=== PATIENT | male | born 1960 | race Caucasian/White ===

== ENCOUNTER 2024-07-19 09:59 | Emergency (ER) | payer BC, SELFPAY ==
[2024-07-19 10:07] VITALS: BP 153/80; PULSE 100; RESP 22; TEMP 37.3; O2SAT 97
--- NOTE | 2024-07-19 10:10 | ED.URI ---
HPI - URI/Sore Throat General Chief Complaint: Upper Respiratory Infection Stated Complaint: head cold Source: patient and RN notes reviewed Mode of arrival: ambulatory Limitations: no limitations History of Present Illness HPI Narrative: 63-year-old male presented for complaint of cough and wheezing, chest congestion, runny nose, body aches, and subjective fever. Onset yesterday. Endorses symptoms started after he had respiratory testing for his job. Pt traveled from [place]. He denies nausea, vomiting, diarrhea or lethargy. MD elicited complaint: cough Related Data Home Medications ?Medication ?Instructions ?Recorded ?Confirmed ?Last Taken ?Type alprazolam 07/19/24 Unknown History amlodipine 07/19/24 Unknown History rosuvastatin 07/19/24 Unknown History Allergies Allergy/AdvReac Type Severity Reaction Status Date / Time No Known Allergies Allergy Verified 07/19/24 10:22 Review of Systems Review of Systems: CONSTITUTIONAL: Endorses malaise, myalgia, chills, sweats, fever EYES: Denies visual changes, redness, or discharge ENT: Reports rhinorrhea, congestion, sinus pain, otalgia, sore throat CARDIOVASCULAR: Denies chest pain, palpitations, edema RESPIRATORY: Reports cough, post nasal drainage dyspnea and wheeze GASTROINTESTINAL: Denies abdominal pain, nausea, vomiting, diarrhea SKIN: Denies rash or itching NEUROLOGIC: Denies headache All systems reviewed & are unremarkable except as noted in HPI and below PMFSH Comments At time of signature, I have reviewed and agree with nursing past medical, surgical, social and family history unless otherwise noted. Please see nursing chart for further information. There is no relevant family history pertinent to the presenting complaint Exam Narrative: GENERAL: mildly Ill-appearing, nontoxic no acute distress. EYES: PERRLA, conjunctivae clear ENT: Mucous membranes moist. TM pearly nails with dull light reflex bilaterally; no tragal tenderness. Oropharynx not erythematous without lesions or exudate, no drooling, no hoarseness, no trismus, uvula midline. CHEST: Lungs coarse with wheezing throughout No respiratory distress, speaks in full sentences. Frequent harsh cough. HEART: Regular rate and rhythm. SKIN: Warm, dry NEURO: Alert and oriented x3. PSYCH: Normal mood and affect Course Course Emergency Course: Patient is aware of diagnosis, understands and agrees to treatment plan. Anticipatory guidance given. Patient agrees to follow-up as directed and is aware of reasons to seek care at the emergency department. Portions of this record may have been created with voice recognition software Level of Care: Express Care Visit Vital Signs Vital signs: Vital Signs Temperature 99.1 F 07/19/24 10:07 Pulse Rate 100 07/19/24 10:07 Respiratory Rate 22 H 07/19/24 10:07 Blood Pressure 153/80 H 07/19/24 10:07 Pulse Oximetry 97 07/19/24 10:07 Oxygen Delivery Room Air 07/19/24 10:07 Temperature 99.1 F 07/19/24 10:07 Pulse Rate 100 07/19/24 10:07 Respiratory Rate 22 H 07/19/24 10:07 Blood Pressure 153/80 H 07/19/24 10:07 Pulse Oximetry 97 07/19/24 10:07 Oxygen Delivery Room Air 07/19/24 10:07 reviewed MDM - URI/Sore Throat MDM Narrative Medical decision making narrative: Discussed physical exam findings likely bronchitis 2/2 viral infection negative flu and COVID Reassessed after DuoNeb treatment; reports some improvement in breathing. Lungs with exp wheezing only. Advised supportive measures and signs/symptoms to go to the ER at length. Pt is appropriate for outpt treatment and f/u. Differential Diagnosis Differential diagnosis: Likely upper respiratory infection, sinusitis and viral infection Lab Data Labs: Lab Results 07/19/24 Range/Units 10:39 POC Influenza A Ag Negative (Negative) POC Influenza B Ag Negative (Negative) POC SARS CoV-2 Ag Negative (Negative) Discharge Plan Discharge Clinical Impression: Bronchitis Patient Disposition: Home, Self-Care Condition: Stable Instructions: Antibiotic Form, Acute Bronchitis (ED) Additional Instructions: flu and COVID negative today. It may be too early to detect the virus, therefore we recommend retesting at home in 1-2 days Continue to follow general precautions: frequent handwashing, wear a mask, isolate/social distance, and avoid crowds if you have a fever. You must be fever free for 24 hours without the use of fever reducing medication (Tylenol/ibuprofen) before returning to work/school/crowds. Take medicine as prescribed -Medrol pack - steroid -albuterol inhaler - as needed for shortness of breath/wheezing -benzonatate - as needed for cough -zyrtec - antihistamine Recommendations: Flonase spray and Zyrtec (or Claritin/Karolyn) for runny nose over the counter Cough syrup may cause drowsiness; avoid driving or take it at night time. Tylenol 1000mg every 8 hours as needed for pain Symptomatic treatment includes: rest, fluids, and increase humidity of the air at home. Follow up with your primary care provider in 1 week. Go to the ER for worsening symptoms or concerns. Patient Language: Swazi Prescriptions: New cetirizine [Zyrtec] 10 mg tablet 10 mg PO DAILY PRN (Reason: allergy symptoms) Qty: 30 0RF benzonatate 200 mg capsule 200 mg PO TID PRN (Reason: cough) Qty: 20 0RF methylprednisolone [Medrol (Daniele)] 4 mg tablets,dose pack See Rx Instructions .ROUTE .COMPLEX Qty: 21 0RF Rx Instructions: orally per package directions albuterol sulfate 90 mcg/actuation HFA aerosol inhaler 2 inh inhalation QID PRN (Reason: shortness of breath or wheezing) Qty: 8.5 0RF No Action amlodipine rosuvastatin alprazolam Follow-up/Referrals: PHYSICIAN NOT ON STAFF,NONSTAFF [Primary Care Provider] -
[2024-07-19 10:41] LABS: EDCOVIDSCREEN Negative (Negative); EDINFLUASCREEN Negative (Negative); EDINFLUBSCREEN Negative (Negative)
--- OUTSIDE RECORDS SUMMARY | 2024-07-19 10:48 | XMS_ITS | Referral Summary ---
Author [place] [facility] [place] [facility] Address [address] [place] [address] Care Team Providers Care Data Processing Operator Name Role Phone Unknown, Notinfile Primary Care Provider Unavail able Allergies Active Allergy Reactions Criticality Noted Date Comments Ibuprofen Rash Medium 02/22/2017 High doses High doses Paroxetine Other (See comments) Medium 04/23/2014 Nervousness Other reaction(s): Psychiatric Nervousness Nervousness Medications amLODIPine (NORVASC) 10 mg tablet Take 10 mg by mouth daily 1 Active ALPRAZolam (XANAX) 1 mg tablet Take 1.5 mg by mouth daily as needed 9 Active rosuvastatin (CRESTOR) 10 mg tablet Take 10 mg by mouth daily 1 Active albuterol HFA (PROVENTIL HFA,VENTOLIN HFA,PROAIR HFA) 90 mcg/actuation inhaler Inhale 2 puffs every 6 (six) hours as needed 9 Active tadalafiL (ADCIRCA) 10 mg tablet Take 10 mg by mouth daily as needed for erectile dysfunction Active Active Problems No known active problems Social History Tobacco Use Types Packs/Day Years Used Date Smoking Tobacco: Former Cigarettes Q uit: 10/1998 Smokeless Tobacco: Former Chew Tobacco Cessation:Counseling Given: Not Answered Personal Safety Answer Date Recorded Getting School Help Needed Not on file 07/08 Sex and Gender Information Value Date Recorded Sex Assigned at Not on file Legal Sex Male 2:12 PM CDT Gender Identity Not on file Sexual Orientation Not on file Last Filed Vital Signs Vital Sign Reading Time Taken Comments Blood Pressure 111/64 05/23/2022 5:00 PM RECORD LIBRARIAN Pulse 69 05/23/2022 5:00 PM RECORD LIBRARIAN Temperature 37 C (98.6 F) 05/23/2022 5:00 PM RECORD LIBRARIAN Respiratory Rate 16 05/23/2022 5:00 PM RECORD LIBRARIAN Oxygen Saturation 98% 05/23/2022 5:00 PM RECORD LIBRARIAN Inhaled Oxygen Concentration - - Weight 74.8 kg (165 lb) 05/23/2022 12:14 PM RECORD LIBRARIAN Height 167.6 cm (5' 6 ) 05/23/2022 12:14 PM RECORD LIBRARIAN Body Mass Index 26.63 05/23/2022 12:14 PM RECORD LIBRARIAN Plan of Treatment Not on file [place] Care Teams Data Processing Operator Relationship Specialty Start Date End Date Unknown, Notinfile PCP - General 05/23/22
--- OUTSIDE RECORDS SUMMARY | 2024-07-19 10:48 | XMS_ITS | Encounter Summary ---
Author Organization [facility] Address [address] [place] [address] Phone Care Team Providers Care Supervisor Marble Name Role Phone Sarmad Taylor MD Primary Care Provider [phone] Reason for Visit * Reason Comments Medication Refill Encounter Details Date Type Department Care Team (Late Contact Info) Description 02/20/2023 Refill [facility] [address] [facility] [address] [place], [address] Sarmad Taylor MD [address] [facility] [address] [place] [address] Social History Tobacco Use Types Packs/Day Years Used Date Smoking Tobacco: Former Cigarettes 2 20 1 - 04/23/2005 Smokeless Tobacco: Never Alcohol Use Standard Drinks/Week Comments Yes 0 (1 standard drink = 0.6 oz pur e alcohol) rare PHQ-2 Answer Date Recorded PHQ-2 Score 0 01/24/2023 Sex and Gender Information Value Date Recorded Sex Assigned at Not on file Legal Sex Male 5:55 PM TRUCK SALES REPRESENTATIVE Gender Identity Not on file Sexual Orientation Not on file documented as of this encounter Plan of Treatment Upcoming Encounters Date Type Department Care Team (Late Contact Info) Description 01/27/2025 8:45 AM CDT Office Visit [facility] [address] [facility] [address] [place] [address] Sarmad Taylor MD [address] [place] [address] documented as of this encounter Visit Diagnoses Not on filedocumented in this encounter Additional Health Concerns Assessment Noted Time PHQ-9 Depression Total Score: 0 04/18/20 19 7:55 AM TRUCK SALES REPRESENTATIVE A fall risk assessment has been complete d for the patient 01/24/2023 9:25 AM CDT PHQ-2 Depression Total Score: 0 01/25/20 23 9:25 AM CDT documented as of this encounter Care Teams Supervisor Marble Relationship Specialty Start Date End Date Sarmad Taylor MD [address] [place] [address] PCP - General Internal Medicine 04/23/14 documented as of this encounter
--- OUTSIDE RECORDS SUMMARY | 2024-07-19 10:48 | XMS_ITS | Encounter Summary ---
Author Organization [facility] Address [address] [place] [address] Phone Care Team Providers Care Assistant Commissioner Name Role Phone Sarmad Taylor MD Primary Care Provider [phone] Reason for Visit * Reason Onset Date Comments Medication Refill 08/12/2022 Encounter Details Date Type Department Care Team (Late st Contact Info) Description 08/12/2022 Refill [facility] [address] [facility] [place] [address] Sarmad Taylor MD [address] [facility] [address] [place] [address] Erectile dysfunction, unspecified erectile dysfunction type; Anxiety Social History Tobacco Use Types Packs/Day Years Used Date Smoking Tobacco: Former Cigarettes 2 20 1 - 04/23/2005 Smokeless Tobacco: Never Alcohol Use Standard Drinks/Week Comments Yes 0 (1 standard drink = 0.6 oz pur e alcohol) rare PHQ-2 Answer Date Recorded PHQ-2 Score 0 01/24/2022 Sex and Gender Information Value Date Recorded Sex Assigned at Not on file Legal Sex Male 5:55 PM HEAD OF ETHICS AND COMPLIANCE Gender Identity Not on file Sexual Orientation Not on file documented as of this encounter Plan of Treatment Upcoming Encounters Date Type Department Care Team (Late st Contact Info) Description 01/27/2025 8:45 AM CDT Office Visit [facility] [address] [facility] [address] [place] [address] Sarmda Taylor MD [address] [facility] [address] [place] [address] documented as of this encounter Visit Diagnoses Diagnosis Erectile dysfunction, unspecified erectile dysfunction type Anxiety Anxiety state, unspecified documented in this encounter Additional Health Concerns Assessment Noted Time PHQ-9 Depression Total Score: 0 04/18/20 19 7:55 AM HEAD OF ETHICS AND COMPLIANCE A fall risk assessment has been complete d for the patient 07/03/2022 4:10 PM CDT PHQ-2 Depression Total Score: 0 01/25/20 22 10:04 AM CDT documented as of this encounter Care Teams Assistant Commissioner Relationship Specialty Start Date End Date Sarmad Taylor MD [address] [facility] [place] [address] PCP - General Internal Medicine 04/23/14 documented as of this encounter
--- OUTSIDE RECORDS SUMMARY | 2024-07-19 10:48 | XMS_ITS | Clinical Summary ---
Author Organization [facility] Address [address] [facility] [place] [address] Phone Care Team Providers Care Bar Host Name Role Phone Sarmad Taylor MD Primary Care Provider [phone] Allergies Active Allergy Reactions Criticality Noted Date Comments Ibuprofen Rash Low 02/22/2017 High doses Paroxetine Medium 04/23/2014 Other reaction(s): Psychiatric Nervousness Paroxetine Hcl Other (See Comments) 04/23/2014 Nervousness Medications omeprazole (PRILOSEC) [address] capsule Take one capsule (10 mg total) by mouth one (1) time a day Active tadalafiL (CIALIS) 20 MG tabletIndications: Erectile dysfunction, unspecified erectile dysfunction type Take one tablet (20 mg total) by mouth as needed for erectile dysfunction 30 tablet 3 01/25/20 23 Active lidocaine (XYLOCAINE) 2 % mucosal solutionIndication s:Mouth ulcer Swish and spit 5 mL 4 (four) to 5 (five) times daily as needed 100 mL 01/08/20 24 025 Active rosuvastatin (CRESTOR) 20 MG tabletIndications: Mixed hyperlipidemia TAKE 1 TABLET BY MOUTH DAILY 30 tablet 11 01/19/20 24 Active losartan (COZAAR) 25 MG tabletIndications: Essential hypertension with goal blood pressure less than 130/80 Take one tablet (25 mg total) by mouth one (1) time a day 30 tablet 11 01/28/20 24 025 Active amLODIPine (NORVASC) 10 MG tabletIndications: Essential hypertension with goal blood pressure less than 130/80 Take one tablet (10 mg total) by mouth one (1) time a day 30 tablet 11 01/28/20 24 Active ALPRAZolam (XANAX) 1 MG tabletIndications: Anxiety Take one and one-half tablet (1.5 mg total) by mouth daily as needed for anxiety 45 tablet 5 02/02/20 24 Active Active Problems Patient Care Coordination No te Formatting of this note migh t be different from the original. Screening colon 02/22/17 @[address] [place] [address] Problem Noted Date Diagnosed Date Cystitis 03/28/2023 Asthma 03/28/2023 GERD (gastroesophageal reflux disease) 3 Hypertension 03/28/2023 Screen for colon cancer 02/22/2017 Internal hemorrhoids without complication 2016 Encounters Date Type Department Care Team Description 07/16/2024 Historic Scan Encounter [facility] [address] [facility] [place] [address] Sarmad Taylor MD from Last 3 Months Immunizations Immunization Administration Dates Next Due Influenza Inj. QIV (PF) 04/18/2019 Influenza Seasonal Inj. (PF) 01/25/2024 influenza QIV PF 3+ yrs 01/16/2017,02/16/2016 Family History Medical History Relation Name Comments Colon cancer Neg Hx Diabetes Neg Hx Hyperlipidemia Neg Hx Hypertension Neg Hx Social History Tobacco Use Types Packs/Day Years Used Date Smoking Tobacco: Former Cigarettes 2 20 1 - 04/23/2005 Smokeless Tobacco: Never Tobacco Cessation:Counseling Given: Not Answered Alcohol Use Standard Drinks/Week Comments Yes 0 (1 standard drink = 0.6 oz pur e alcohol) rare PHQ-2 Answer Date Recorded PHQ-2 Score 0 01/25/2024 BOC Food Insecurity Answer Date Recorde d Food Insecurity Not At Risk 07/25/2023 BOC Transportation Needs Answer Date Re corded Transportation Needs Not At Risk 07/25/2023 BOC Housing Stability Source Answer Dutch e Recorded Housing Insecurity Not At Risk 07/25/2023 BOC Utility Needs Source Answer Date Re corded Utility Needs Not At Risk 06/24/2023 BOC Financial Resource Needs Answer Dutch e Recorded Financial Resource Strain Not At Risk 2023 Intimate Partner Safety Answer Date Rec orded Intimate Partner Safety Not At Risk 06/24/19 24 Intimate Partner Safety Not At Risk 06/24/19 24 Intimate Partner Safety Not At Risk 06/24/19 24 Intimate Partner Safety Not At Risk 06/24/19 24 Intimate Partner Safety Not At Risk 06/24/19 24 Sex and Gender Information Value Date Recorded Sex Assigned at Not on file Legal Sex Male 5:55 PM ROCKET SCIENTIST Gender Identity Not on file Sexual Orientation Not on file Last Filed Vital Signs Vital Sign Reading Time Taken Comments Blood Pressure 128/80 01/25/2024 9:18 AM CDT Pulse 68 01/25/2024 8:59 AM CDT Temperature 36.4 C (97.6 F) 01/25/2024 8:59 AM CDT Respiratory Rate 22 03/31/2023 7:45 AM ROCKET SCIENTIST Oxygen Saturation 98% 01/25/2024 8:59 AM CDT Inhaled Oxygen Concentration - - Weight 73.7 kg (162 lb 6.4 oz) 01/25/2024 8:59 A M CDT Height 167.6 cm (5' 6 ) 01/25/2024 8:59 AM CDT Body Mass Index 26.21 01/25/2024 8:59 AM CDT Plan of Treatment Upcoming Encounters Date Type Department Care Team (Late st Contact Info) Description 01/27/2025 8:45 AM CDT Office Visit [facility] [address] [facility] [address] [place], [address] Sarmad Taylor MD [address] [facility] [address] [place] [address] Health Maintenance Due Date Last Done Comments Colorectal Cancer Screening Annual FOBT/FIT Test 1960 Colorectal Cancer Screening Cologuard 1960 Colorectal Cancer Screening Flex Sigmoidoscopy 1960 Pneumococcal Vaccine High Risk 1961 DTap/Tdap/Td Vaccines (1 - Tdap) 1980 Colonoscopy Every 6 Months 08/22/2017 02/22/2017 RSV Immunization Patients or 60+ Years (1 - Risk 60-74 years 1-dose series) 2021 Hepatitis C Antibody Screen 01/23/2025 Postponed from 10/24/1979 (Not Indicated) Annual Depression Screening 01/24/2025 100 06/2023, 01/24/2023, 01/24/2022, Additional history exists Annual Physical 01/24/2025 01/25/2024 Colorectal CA Screen 10 Year Colonoscopy 02/22/2027 02/22/2017 Colorectal Cancer Screening 02/22/2027 02/22/2017 02/22/2017 02/22/2017 02/22/2017 02/22/2017 02/22/2017 Influenza Vaccine Completed 01/25/2024, , 01/16/2017, Additional history exists Zoster Vaccine (Shingles) Discontinued Insurance BLUE CROSS OUT OF STATE [facility] OUT OF [facility] Advance Directives For more information, please contact: [phone] (7AM - 5PM [facility], 7 days a week) * Full Code (Latest Code Status on File) Date Activated Date Inactivated Comments 03/29/2023 2:55 AM 03/31/2023 7:42 PM Care Teams Bar Host Relationship Specialty Start Date End Date Sarmad Taylor MD [address] [facility] [place] [address] PCP - General Internal Medicine 04/23/14
--- OUTSIDE RECORDS SUMMARY | 2024-07-19 10:48 | XMS_ITS | Clinical Summary ---
Author Organization [facility] [place] [facility] Address [address] [facility] [place] [address] Care Team Providers Care Soil Sort Worker Name Role Phone Unknown, Notinfile Primary Care [...] Active Active Problems No known active problems Medical History Medical History Date Comments High cholesterol Anxiety HTN (hypertension) Social History Tobacco Use Types Packs/Day Years [...] on file Sexual Orientation Not on file Obstetrics History Last Filed Vital Signs Vital Sign Reading Time Taken Comments Blood Pressure 111/64 05/23/2022 5:00 PM QUALITY CONTROL MICROBIOLOGY SUPERVISOR Pulse 69 05/23/2022 5:00 PM QUALITY CONTROL MICROBIOLOGY SUPERVISOR Temperature 37 C (98.6 F) 05/23/2022 5:00 PM QUALITY CONTROL MICROBIOLOGY SUPERVISOR Respiratory Rate 16 05/23/2022 5:00 PM QUALITY CONTROL MICROBIOLOGY SUPERVISOR Oxygen Saturation 98% 05/23/2022 5:00 PM QUALITY CONTROL MICROBIOLOGY SUPERVISOR Inhaled Oxygen Concentration - - Weight 74.8 kg (165 lb) 05/23/2022 12:14 PM QUALITY CONTROL MICROBIOLOGY SUPERVISOR Height 167.6 cm (5' 6 ) 05/23/2022 12:14 PM QUALITY CONTROL MICROBIOLOGY SUPERVISOR Body Mass Index 26.63 05/23/2022 12:14 PM QUALITY CONTROL MICROBIOLOGY SUPERVISOR Plan of Treatment Health Maintenance Due Date Last Done Comments Colon Cancer Screening-Colonoscopy 1961 Depression Screening 1961 Hepatitis C Screening 1961 Prostate Cancer Screening-PSA 1961 DTaP/Tdap/Td Vaccine (1 - Tdap) 1972 Hepatitis B Screening 10/24/1979 Regular Well Visit/Exam 18-64 10/24/1979 Zoster Vaccine (1 of 2) 10/24/2011 Influenza Vaccine (#1) 2023 9, 01/16/2017, 02/16/2016 Pneumococcal vaccine <65 Aged Out No longer eligible based on patient's age to complete this topic [place] Care Teams Soil Sort Worker Relationship Specialty Start Date End Date Unknown, Notinfile PCP - General 05/23/22
--- OUTSIDE RECORDS SUMMARY | 2024-07-19 10:48 | XMS_ITS ---
Author Organization [facility] Address [address] [place] [address] Care Team Providers Care Deportation Examiner Name Role Phone Nicolás Herbert Unavailable [phone] REASON FOR VISIT SYMPTOMS POST SURGERY Medications Medication SIG (Take, Route, Fr equency, Duration) Notes Start Date End Date Status Cipro 500 mg 1 tab(s) orally ever y 12 hours for 10 day(s) 03/27/2023 04/06/2023 Active Encounters Encounter Location Date Provider Diagnosis [facility] [address] [place] [address] 03/27/2023 Nicolás Herbert Plan Of Treatment Medication Medication Name Sig Start Date Stop Date Notes Cipro 500 mg 1 tab(s) orally ever y 12 hours for 10 day(s) 03/27/2023 04/06/2023 Progress Notes * Cheng PARRADOB:1960 (62 yo M)Acc No.[id number]:03/27/2023 Patient: Cheng Lewis :1960 A ge:62 Y S ex:Male Address:[place], [address] * Refills Start Cipro tablet, 500 mg, orally, 20, 1 tab(s), every 12 hours, 10 day(s), Refills=0 * true * Date: Generated for Printi ng/Faxing/eTransmitting on: 0 07/19/2024 10:48 AM CDT
--- OUTSIDE RECORDS SUMMARY | 2024-07-19 10:48 | XMS_ITS | Patient Health Record ---
Author Organization [facility] Address [address] [place] [address] Care Team Providers Care Search Engineer Name Role Phone Nicolás Herbert Unavailable [phone] Allergies Allergen (clinical drug ingredient) Drug/Non Drug Allergy documented on EMR Reaction Allergy Type Onset Date Status ibuprofen rash Drug Allergy Active Reason For Referral No Information Medications Medication SIG (Take, Route, Fr equency, Duration) Notes Start Date End Date Status tamsulosin 0.4 mg 1 cap(s) orally once a day for 30 day(s) Active amLODIPine 10 mg 1 tab(s) orally once a day for 30 day(s) Active aspirin 81 mg 1 tab(s) chewed once a day for 30 day(s) Active promethazine 12.5 mg 1 supp(s) rectally every 6 hours prn for 5 days Active Flomax 0.4 mg 1 cap(s) orally once a day 3 Active rosuvastatin 20 mg 1 tab(s) orally once a day for 30 day(s) Active tadalafil 20 mg 1 tab(s) orally once a day Active ALPRAZolam 1 mg 1 tab(s) orally every 8 hours Active losartan 25 mg 1 tab(s) orally once a day for 30 day(s) Active Problems Problem Type SNOMED Code ICD Code Onset Dates Problem Status W/U Status Risk Notes Problem Nausea and vomiting (52340421) Nausea with vomiting, unspecified (R11.2) Active confirmed Problem Hydronephrosis (65806190) Other hydronephrosis (N13.39) Active confirmed Problem Retention of urine (540249074) Retention of urine, unspecified (R33.9) Active confirmed Problem Calculus of ureter (59190570) Calculus of ureter (N20.1) Active confirmed Plan Of Treatment Pending Test Test Name Order Date UA-AUTO/CREAT/MICRO ALB 03/06/2023 Insurance Providers Payer Name Payer Address Payer Phone Subscriber Number Group Number Insured Name Patient Relationship to Insured Coverage Start Date Coverage End Date [facility] [address] [place] [address] [id number] Cheng Timmons Self - patient is the insured Medical (General) History Medical History History ICD Code Hypertension Kidney Stones Surgical History Surgery Date(Month/Year) Kidney stones Hernia Hospitalization History Reason Date(Month/Year) surgery
--- OUTSIDE RECORDS SUMMARY | 2024-07-19 10:48 | XMS_ITS | Clinical Summary ---
Author Organization [facility] [employer] Address [address] [place] [address] Care Team Providers Care Assignment Officer Name Role Phone Unavailable Primary Care Provider Unavailabl e Source Comments [facility],non-owned Affiliates and Associated Physician Practices is amultiple site organization consisting of ambulatory clinics and hospital sitesin [place], [place], [place] and [place]. This disclosure is being madepursuant to the Care Everywhere program and may not contain all information available regarding this patient. Last updated 18.[facility] [employer] Allergies Active Allergy Reactions Criticality Noted Date Comments Ibuprofen Rash Medium 02/22/2017 High doses Paroxetine Psychiatric Medium 04/23/2014 Nervousness Medications * Be aware that medications may not be up to date on this document. Alwaysverify current medications with the patient. Medication Sig Dispensed Refills Start Date End Date Status ALPRAZolam (XANAX) 1 MG tablet TAKE ONE AND ONE-HALF (1 & 1/2) TABLET BY MOUTH DAILY 09/09/2018 Active acyclovir (ZOVIRAX) 400 MG tablet TK 1 T PO Q 6 H PRN 0 01/05/2019 Active albuterol HFA (PROVENTIL;VENTOLIN;P ROAIR) 108 (90 Base) MCG/ACT inhalerIndications:Ac swinomish bronchitis, unspecified organism Inhale 2 puffs by mouth every 6 hours as needed for Wheezing or Cough 1 Inhaler 02/25/2019 Active Active Problems Problem Noted Date Diagnosed Date Internal hemorrhoids without complication 2016 Screen for colon cancer 02/22/2017 Social History Tobacco Use Types Packs/Day Years Used Date Smoking Tobacco: Former Smokeless Tobacco: Never Sex and Gender Information Value Date Recorded Sex Assigned at Not on file Gender Identity Not on file Sexual Orientation Not on file Last Filed Vital Signs Vital Sign Reading Time Taken Comments Blood Pressure 132/80 02/25/2019 9:58 AM CASTING INSPECTOR Pulse 77 02/25/2019 9:58 AM CASTING INSPECTOR Temperature 36.6 C (97.8 F) 02/25/2019 9:58 AM CASTING INSPECTOR Respiratory Rate 16 02/25/2019 9:58 AM CASTING INSPECTOR Oxygen Saturation 98% 02/25/2019 9:58 AM CASTING INSPECTOR Inhaled Oxygen Concentration - - Weight 73.5 kg (162 lb) 02/25/2019 9:58 AM CASTING INSPECTOR Height 167.6 cm (5' 6 ) 02/25/2019 9:58 AM CASTING INSPECTOR Body Mass Index 26.15 02/25/2019 9:58 AM CASTING INSPECTOR Plan of Treatment Health Maintenance Due Date Last Done Comments COLOGUARD (AGES 45-75) - COL ON CA SCREENING 1961 COLON MONITORING 1961 COLONOSCOPY - COLON CA SCREENING 1961 CT COLONOGRAPHY - COLON CA SCREENING 1960 Colorectal Cancer Screening 1961 FIT - COLON CA SCREENING 1961 FLEX SIG - COLON CA SCREENING 1961 LIPID TESTING 1961 HIV SCREENING 1976 HEPATITIS C SCREENING 10/19/1979 DTAP/TDAP/TD VACCINES (1 - Tdap) 1980 PNEUMOCOCCAL VACCINE 50+ (1 of 1 - PCV) 10/24/2011 ZOSTER VACCINE (1 of 2) 10/24/2011 SCREENING FOR DIABETES 02/25/2019 COVID-19 VACCINE ( - 2023-2 5 season) 2023 INFLUENZA VACCINE (#1) 2023 DEPRESSION SCREENING 04/24/2024 Respiratory Syncytial Virus (RSV) Vaccine Pt: or over 60 yrs (1 - 1-dose 75+ series) 2036 HEPATITIS B VACCINE Aged Out No longe r eligible based on patient's age to complete this topic HIB VACCINE Aged Out No longer eligi ble based on patient's age to complete this topic HPV VACCINE Aged Out No longer eligi ble based on patient's age to complete this topic MENINGOCOCCAL (Group B) VACC INE SHARED DECISION-MAKING Aged Out No longer eligibl e based on patient's age to complete this topic MENINGOCOCCAL GROUPS A/C/Y/W VACCINE Aged Out No longer eligible b ased on patient's age to complete this topic PNEUMOCOCCAL VACCINE Aged Out No long er eligible based on patient's age to complete this topic
--- OUTSIDE RECORDS SUMMARY | 2024-07-19 10:48 | XMS_ITS | Data Portability ---
Author Organization [place] - [facility], [facility] Address [address] [place] [address] Assessment Encounter Date Assessment Date Assessment LastModified by Organization Details LastModified Time 08/12/2022 08/12/2022 Patient is overall doing very well at this time. I am okay with him returning to work at this point. He may continue to increase his activity to tolerance. We will plan to see him back in 4 weeks time for repeat evaluation. All questions were answered today. [email or web address] Not available 08/15/2022 02:37:39 09/09/2022 09/09/2022 Patient is overall doing very well at this time. He may continue to increase his activity to tolerance. We will plan to see him back on an as needed basis at this point. All questions were answered today. [email or web address] Not available 09/10/2022 00:52:06 Plan of Treatment Reminders Order Date Submit Date Provider Last Modified By Organization Details Last Modified Time Details Appointments None record ed. Lab None record ed. Referral None record ed. Procedures None record ed. Surgeries None record ed. Imaging None record ed. Medication Orders None record ed. Patient TargetsNo targets recorded. Patient InstructionsNo instructions recorded. Reason for Referral None Reported. Results Created Date Observation Date Name Description Value Unit Range Abnormal Flag Note LastModifiedBy Organization Detail LastModifiedTime 11/24/1907/11/2022 imagi ng/di agnos tic resul t No observ ation record ed. [email or web address] Not Available 11/24/2023 06:00:14 Result Notes None recorded. Problems Name Problem SNOMED Code Status Onset Date Resolution Date Notes Provider Name and Address Organization Details Recorded Time Tear of medial meniscus of knee 560966212 Active 2022 Patient Education Date: 07/06/2022 Not Available [facility] 3 14:52:15 Dislocate d knee with medial meniscus tear 672131849 Active 2022 Patient Education Date: 07/06/2022 Not Available [facility] 3 14:52:15 Problem Notes None recorded. Procedures Surgical History None recorded. Imaging Results Imaging Date Name Status LastModified by Organiz ation Details LastModified Time 07/11/2022 imaging/carmelo gnostic result completed [email or web address] Information not available 11/24/2023 06:00:14 Procedure Notes None recorded. Medical Equipment None Reported. Allergies No known drug allergies Medications Name Sig Start Date Stop Date Status Note LastModified by Organization Details LastModified Time aspirin 81 mg tablet,del ayed release TAKE ONE TABLET BY MOUTH DAILY active Not Available Not Available No t Available naproxen 500 mg tablet 009 2022 completed Not Available Not Available Not Available Vitals Date Recorded Body height Body mass index (BMI) Body weight Provider Name and Address Organization Details Last Updated DateTime 08/12/2022 167.64 cm 28.6 kg/m2 98664.85 g ZionTyrellSarah Soto [facility], 08/12/2022 14:20:28 Date Recorded Body height Body mass index (BMI) Body weight Provider Name and Address Organization Details Last Updated DateTime 09/09/2022 167.64 cm 28.6 kg/m2 07511.85 g Marquita Moss [facility], 09/09/2022 13:23:12 Social History Question Answer Notes LastModified by Organizat ion Details LastModified Time Tobacco Smoking Status Never Smoker ZionTyrellSarah Soto [facility], 08/12/2022 14:21:07 What Is Your Level Of Alcohol Consumption? None Information not available 08/12/2022 Do You Use Any Illicit Or Recreational Drugs? No [email or web address] Information not available 08/12/2022 Do You Or Have You Ever Used Any Other Forms Of Tobacco Or Nicotine? No [email or web address] Information not available 08/12/2022 Sex: Unknown Functional Status None recorded. Mental Status None recorded. Family History Relationship Description Onset Age of this Age Resolved Age Notes LastModified by Organization Details LastModified Time Unspecified Relation Family history of malignant neoplasm Not available 08/12 14:20:54 Unspecified Relation Hypertensive disorder [email or web address] Not available 08/12 14:20:58 Medical History Condition Response Other N Gout N Anxiety/Depression N Osteoarthritis N Colitis N MRSA N Lung disease/COPD/Emphysema N Thyroid Problems N Sickle Cell Disesae N Goiter N Osteoporosis/Osteopenia N Anemia N Acid Reflux (GERD)/Stomach ulcer N Diabetes N Bleeding Disorder N Blood Clot N Tuberculosis N AIDS/HIV N Cancer N Stroke N Asthma N Lupus N Epilepsy/Seizures N Polio N Alcohol Overuse/Alcohol Abuse N Sleep Apnea N Neurologic Disorder N Hepatitis N Pelvic Radiation N Liver Disease N Heart Disease/Heart attack N Rheumatoid Arthritis N Hypertension N Kidney Disease N Past Encounters Encounter ID Performer Location Encounter Start Date Encounter Closed Date Diagnosis/Indication Diagnosis SNOMED-CT Code Diagnosis ICD10 Code Diagnosis Note [id number] Saul Dwyer MD [facility] [address] [place] [address] 08/12/2022 14:01:14 08/12/2022 14:22:53 Tear of medial meniscus of knee 654940001 S83.231D [id number] Saul Dwyer MD [facility] [address] [place] [address] 09/09/2022 13:13:20 09/09/2022 13:46:59 Tear of medial meniscus of knee 965886672 S83.231D Health Concerns Section Related Observation LastModified by Organization Detai ls LastModified Time None Recorded Concern Status LastModified by Organization Details LastModified Time None Recorded Advance Directives Directive None Recorded Payers Encounter Date Sequence Insurance Name Policy Number Policy Carreno Covered Member ID Carreno Member ID Guarantor Name 08/12/2022 1 [place] [id number] Evert Timmons [id number] Evert Timmons 09/09/2022 1 [place] [id number] Evert Timmons [id number] Evert Marcus Shanelle Notes Date Note Type Note Provider Name and Address Organization Details Recorded Time 08/12/2022 text/html Patient returns to clinic status post arthroscopy. States he has been doing well. Denies any wound problems. Feels much better compared to preoperative state. Saul Dwyer MD [address] [place] [address], [phone], [facility], 08/15/2022 02:37:42 09/09/2022 text/html Patient returns to clinic status post arthroscopy. States he has been doing well. Has been doing well with increased activity. Continues to feel much better compared to preoperative state. Saul Dwyer MD [address] [place] [address], [phone], [facility], 09/10/2022 00:52:10
--- OUTSIDE RECORDS SUMMARY | 2024-07-19 10:48 | XMS_ITS | Encounter Summary ---
Author Organization [facility] Address [address] [facility] [place] [address] Phone Care Team Providers Care Outbound Sales Consultant Name Role Phone Sarmad Taylor MD Primary Care Provider Encounter Details Date Type Department Care Team (Late Contact Info) Description 03/10/2023 Telephone [facility] [address] [place] [address] [place], [address] Sarmad Taylor MD [address] [facility] [address] [place] [address] Social History Tobacco Use Types Packs/Day Years [...] on file Legal Sex Male 5:55 PM GTA Gender Identity Not on file Sexual Orientation Not on file documented as of this encounter Plan of Treatment Upcoming Encounters Date Type Department Care Team (Late Contact Info) Description 01/27/2025 8:45 AM CDT Office Visit [facility] [address] [facility] [address] [place] [address] Sarmad Taylor MD [address] [facility] [address] [place] [address] documented as of this encounter Visit Diagnoses Not on filedocumented in this encounter Additional Health Concerns Assessment Noted Time PHQ-9 Depression Total Score: 0 04/18/20 19 7:55 AM GTA PHQ-2 Depression Total Score: 0 01/25/20 23 9:25 AM CDT documented as of this encounter Care Teams Outbound Sales Consultant Relationship Specialty Start Date End Date Sarmad Taylor MD [address] [place] [address] [place] [address] PCP - General Internal Medicine 04/23/14 documented as of this encounter
--- OUTSIDE RECORDS SUMMARY | 2024-07-19 10:48 | XMS_ITS | Encounter Summary ---
Author Organization [facility] Address [address] [facility] [place] [address] Phone Care Team Providers Care Diesel Tractor Operator Name Role Phone Sarmad Taylor MD Primary Care Provider [phone] Encounter Details Date Type Department Care Team (Late Contact Info) Description 05/05/2021 Telephone [facility] [address] [place] [address] [place], [address] Sarmad Taylor MD [address] [facility] [address] [place] [address] Social History Tobacco Use Types Packs/Day Years Used Date Smoking Tobacco: Former Cigarettes 2 20 1 - 04/23/2005 Smokeless Tobacco: Never Alcohol Use Standard Drinks/Week Comments Yes 0 (1 standard drink = 0.6 oz pur e alcohol) rare PHQ-2 Answer Date Recorded PHQ-2 Score 2 11/03/2020 Sex and Gender Information Value Date Recorded Sex Assigned at Not on file Legal Sex Male 5:55 PM VALUER Gender Identity Not on file Sexual Orientation Not on file documented as of this encounter Plan of Treatment Upcoming Encounters Date Type Department Care Team (Late Contact Info) Description 01/27/2025 8:45 AM CDT Office Visit [facility] [address] [facility] [address] [place] [address] Sarmad Taylor MD [address] [facility] [address] [place] [address] documented as of this encounter Visit Diagnoses Not on filedocumented in this encounter Additional Health Concerns Assessment Noted Time PHQ-9 Depression Total Score: 0 04/18/20 19 7:55 AM VALUER A fall risk assessment has been complete d for the patient 02/22/2017 7:37 AM CDT PHQ-2 Depression Total Score: 2 11/04/19 21 10:18 AM CDT documented as of this encounter Care Teams Diesel Tractor Operator Relationship Specialty Start Date End Date Sarmad Taylor MD [address] [facility] [address] [place] [address] PCP - General Internal Medicine 04/23/14 documented as of this encounter
--- OUTSIDE RECORDS SUMMARY | 2024-07-19 10:48 | XMS_ITS ---
Author Organization [facility] Address [address] [place] [address] Care Team Providers Care Combination Saw Operator Name Role Phone Nicolás Herbert Unavailable [phone] Allergies Allergen (clinical drug ingredient) Drug/Non Drug Allergy documented on EMR Reaction Allergy Type Onset Date Status ibuprofen rash Drug Allergy Active REASON FOR VISIT 3 WK F/U BPH Medications Medication SIG (Take, Route, Fr equency, Duration) Notes Start Date End Date Status amLODIPine 10 mg 1 tab(s) orally once a day for 30 day(s) Active aspirin 81 mg 1 tab(s) chewed once a day for 30 day(s) Active tamsulosin 0.4 mg 1 cap(s) orally once a day for 90 days 04/07/2023 04/01/2024 Active promethazine 12.5 mg 1 supp(s) rectally every 6 hours prn for 5 days Active ALPRAZolam 1 mg 1 tab(s) orally every 8 hours Active rosuvastatin 20 mg 1 tab(s) orally once a day for 30 day(s) Active tadalafil 20 mg 1 tab(s) orally once a day Active losartan 25 mg 1 tab(s) orally once a day for 30 day(s) Active Encounters Encounter Location Date Provider Diagnosis [facility] [address] [place] [address] 04/28/2023 Nicolás Herbert Calculus of ureter N20.1 Assessments Encounter Date Diagnosis (ICD Code) Assessment Notes Treatment Notes Treatment Clinical Notes Section Notes 04/28/2023 Calculus of ureter (ICD-10 - N20.1) Plan Of Treatment Pending Test Test Name Order Date UA-AUTO/CREAT/MICRO ALB 04/28/2023 Progress Notes * Cheng PARRADOB:1960 (63 yo M)Acc No.[id number]:04/28/2023 Progress Notes Patient: Cheng LOPEZ Provider: Angeline Herbert MD :1960 A ge:62 Y S ex:Male Date:04/28/2023 Address:[facility] , [facility], [facility] Subjective: * Chief Complaints: * 1 . 3 WK F/U BPH. * ROS: C onstitutional: no F ever. n o C hills. n o F atigue. ? S kin: Skin Rash N o. B oils N o. P ersistent Itch?No. P sychologic: Considered Suicide N o. F eel Depressed N o. n o U nsatisfied with Life. E ar/Nose/Throat/Mouth: Ear Infection N o. S ore Throat N o. S inus Problems N o. G enitourinary: Urine Retention N o. P ainful Urination N o. F requency of Urination N o. G astrointestinal: Abdominal Pain N o. N ausea/Vomiting N o. I ndigestion/Heartburn N o. n o B lood in Stool. n o C onstipation. R espiratory: no S hortness of Breath. W heezing N o. n o?Using Home Oxygen. n o C ough. H ematologic/Lymphatic: no E asy Bleeding/Bruising. S wollen Glands N o.?no A nemia. E yes: Eye Pain N o. B lurry Vision N o. n o D ouble Vision. N eurological: no D izziness. T remors N o. N umbness/Tingling?No. n o W eakness. n o H eadache. C ardiovascular: no L eg Swelling. V aricose Veins N o. C hest Pain N o. n o I rregular Heartbeat. M usculoskeletal: Neck Pain N o. J oint Pain N o. B ack Pain N o. E ndocrine: Excessive Thirst N o. T oo Hot/Cold N o. T ired/ Sluggish N o. M ben Reproductive: no d ifficulty with erection. n o d ifficulty with ejaculation. n o d iminished sexual drive. n o i nfertility. * Medical History: H ypertension, Kidney Stones. * Surgical History: K idney stones , Hernia . * Hospitalization/Major Diagno stic Procedure: s urgery . * Family History: P zakiya Grand Father: heart disease. * Social History: G eneral: E xercise regularly: Yes, 10 -30 mins. Tobacco: No . Alcohol use: Yes, rare. Recreational Drugs: No. Sexual Active: Yes, weekly. Caffeine: Yes, more than 2 cups / cans / glasses / day. * Medications: T aking tadalafil 20 mg tablet 1 tab(s) orally once a day , Taking rosuvastatin 20 mg tablet 1 tab(s) orally once a day , Taking losartan 25 mg tablet 1 tab(s) orally once a day , Taking ALPRAZolam 1 mg tablet 1 tab(s) orally every 8 hours , Taking aspirin 81 mg tablet, chewable 1 tab(s) chewed once a day , Taking amLODIPine 10 mg tablet 1 tab(s) orally once a day , Taking promethazine 12.5 mg suppository 1 supp(s) rectally every 6 hours prn , Taking tamsulosin 0.4 mg capsule 1 cap(s) orally once a day , stop date 04/01/2024, Medication List reviewed and reconciled with the patient * Allergies: i buprofen: rash - Allergy. Objective: * Vitals: Assessment: * Assessment: 1. C alculus of ureter - N20.1 Plan: * Treatment: * Procedure Codes: 8 1003 Urinalysis, automated, no micro, Modifiers: QW , 93572 UR ALBUMIN SEMIQUANTITATIVE, Modifiers: QW , 34347 MICROALBUMIN, SEMIQUANT, Modifiers: QW * Care Plan Details* * Electronic signature of Nicolás Herbert MD on 07/19/2024 at 10:47 AM CDT Sign off status: Pending * Provider: Angeline Herbert MD Date: 0 04/28/2023 Generated for Nimesh medellin/Kaleb/Manuela on: 0 07/19/2024 10:47 AM BEATRIS
--- OUTSIDE RECORDS SUMMARY | 2024-07-19 10:48 | XMS_ITS ---
Author Organization [facility] Address [address] [place] [address] Care Team Providers Care Inflated Ball Molder Name Role Phone Nicolás Herbert Unavailable [phone] Allergies Allergen (clinical drug ingredient) Drug/Non Drug Allergy documented on EMR Reaction Allergy Type Onset Date Status ibuprofen rash Drug Allergy Active REASON FOR VISIT cath removal Medications Medication SIG (Take, Route, Frequency, Duration) Notes Start Date End Date Status losartan 25 mg 1 tab(s) orally once a day for 30 day(s) Active amLODIPine 10 mg 1 tab(s) orally once a day for 30 day(s) Active ALPRAZolam 1 mg 1 tab(s) orally ever y 8 hours Active aspirin 81 mg 1 tab(s) chewed once a day for 30 day(s) Active promethazine 12.5 mg 1 supp(s) rectally every 6 hours prn for 5 days Active rosuvastatin 20 mg 1 tab(s) orally once a day for 30 day(s) Active Bactrim DS 800 mg-160 mg 1 tab(s) orally every 12 hours for 5 days 04/07/2023 04/12/2023 Active tamsulosin 0.4 mg 1 cap(s) orally once a day for 30 day(s) Active tadalafil 20 mg 1 tab(s) orally once a day Active Flomax 0.4 mg 1 cap(s) orally once a day 03/06/2023 Active tamsulosin 0.4 mg 1 cap(s) orally once a day for 90 days 04/07/2023 04/01/2024 Active Social History Tobacco Use: Social History Observation Description Date Details (start date - stop date) Never Smoker NA - NA Tobacco Question Answer Notes Are you a: nonsmoker Additional Findings: Tobacco Non-User Aggressive non-smoker Problems Problem Type SNOMED Code ICD Code Onset Dates Problem Status W/U Status Risk Notes Problem Retention of urine (099718924) Retention of urine, unspecified (R33.9) Active confirmed Vital Signs Temperature 97.5 degrees Fahrenheit 04/07/20 23 Blood pressure systolic 128 mm Hg 04/07/20 23 Blood pressure diastolic 85 mm Hg 023 Weight 178 lbs 04/07/2023 Height 66 inches 04/07/2023 BMI 28.73 04/07/2023 Encounters Encounter Location Date Provider Diagnosis [facility] [address] [place] [address] 04/07/2023 Nicolás Herbert Calculus of ureter N20.1 ; Retention of urine, unspecified R33.9 ; Other hydronephrosis N13.39 and Nausea with vomiting, unspecified R11.2 Assessments Encounter Date Diagnosis (ICD Code) Assessment Notes Treatment Notes Treatment Clinical Notes Section Notes 04/07/2023 Calculus of ureter (ICD-10 - N20.1) 04/07/2023 Retention of urine, unspecified (ICD-10 - R33.9) 04/07/2023 Other hydronephrosis (ICD-10 - N13.39) 04/07/2023 Nausea with vomiting, unspecified (ICD-10 - R11.2) Plan Of Treatment Medication Medication Name Sig Start Date Stop Date Notes promethazine 12.5 mg 1 supp(s) rectally every 6 hours prn for 5 days Bactrim DS 800 mg-160 mg 1 tab(s) orally every 12 hours for 5 days 04/07/2023 04/12/2023 tamsulosin 0.4 mg 1 cap(s) orally once a day for 90 days 04/07/2023 04/01/2024 Next Appt Details Follow Up: 2 Weeks, Reason: Urinary retention Procedure Notes * Category Sub-Category Detail Notes Trial of Void Bladder Bladder Fill Vol ume:200ml, Voided Volume:200ml Progress Notes * Marilyn PARRA:1960 (63 yo M)Acc No.[id number]:04/07/2023 Progress Notes Patient: Cheng LOPEZ Provider: Angeline Herbert MD :1960 A ge:62 Y S ex:Male Date:04/07/2023 Address:[place], [id number] Subjective: * Chief Complaints: * 1 . Cath removal. * HPI: U reteral Stone: 62 year old male presents with c/o Pain. c /o Nausea. c /o Hematuria. c /o ER visit @ [facility] . c /o Previous Stones. c /o surgical intervention. Side L eft. Imaging studies ( 03/01/23) CT A/P with IV contrast-4 mm left UVJ stone with modeate hydro. The patient presents today due to a left ureteral stone. He began experiencing left sided flank pain 02/28/23. He has been to the ER twice. He is still with left flank and lower back pain, as well as some nausea/vomiting. He has taken left over zofran but is throwing it up. He is taking percocet for pain and is taking daily flomax. He reports a history of kidney stones (last episode was over 20 years ago) and has required intervention in the past. 03/23/23 NEG RETROGRADE, WENT INTO RETENTION 04/07/23 TOV. B PH/WOO: BPH Meds F beatriz/Tamsulosin. * ROS: C onstitutional: no F ever. [...] cups / cans / glasses / day. S ocial History: T obacco A re you a: n onsmoker A dditional Findings: Tobacco Non-User A ggressive non-smoker * Medications: T aking Flomax 0.4 mg capsule 1 cap(s) orally once a day , Taking promethazine 12.5 mg suppository 1 supp(s) rectally every 6 hours prn , Taking tamsulosin 0.4 mg capsule 1 cap(s) orally once a day , Taking tadalafil 20 mg tablet 1 tab(s) orally [...] 1 tab(s) orally once a day , Medication List reviewed and reconciled with the patient * Allergies: i buprofen: rash - Allergy. Objective: * Vitals: H eight: 66, Wt:178, Weight Change: 0 lb, BP:128/85, Temp:97.5, BMI:28.73, Pain Assessment:discomfort, Entered by:javon. * Physical Examination: M BEN EXAMINATION: General Appearance W DWN, Alert, Oriented X3, No Acute Distress, . HEENT: P ERRLA, EOM's Intact, Anicteric. Neck: N ormal, No JVD. Lungs: N ormal Respirations. Abdomen: N on Distended. Back/Flank C VAT Absent. Extremities F ROM, No Edema. Skin: W arm, Dry and Intact, Normal Skin Turgor and Hydration. Assessment: * Assessment: 1. R etention of urine, unspecified - R33.9 (Primary) 2 . C alculus of ureter - N20.1 3 . O ther hydronephrosis - N13.39 4 . N ausea with vomiting, unspecified - R11.2 Plan: * Treatment: 2. N ausea with vomiting, unspecified hold on hand promethazine suppository, 12.5 mg, 1 supp(s), rectally, every 6 hours prn, 5 days, 15, Refills 0. * Procedures: T rial of Void: Bladder B ladder Fill Volume:200ml, Voided Volume:200ml.? * Procedure Codes: 5 1700 BLADDER IRRIGATION * Preventive Medicine: Counseling: B MT Care goal follow-up plan: BMI counseling provided to patient:?Discussed importance of healthy BMI * Follow Up: 2 Weeks (Reason: Urinary retention) * Care Plan Details* * Electronic signature of Nicolás Herbert MD on 07/19/2024 at 10:48 AM CDT Sign off status: Pending * Provider: Angeline Herbert MD Date: 1 06/08/2022 Generated for Nimesh medellin/Kaleb/eTransmitting on: 0 07/19/2024 10:48 AM CDT History and Physical Notes * HPI (History of Present Illness) Category Sub-Category Detail Notes Category Not es BPH/WOO BPH Meds Flomax/Tamsulosin Ureteral Stone Side Left The patient presents today due to a left ureteral stone. He began experiencing left sided flank pain 02/28/23. He has been to the ER twice. He is still with left flank and lower back pain, as well as some nausea/vomiting. He has taken left over zofran but is throwing it up. He is taking percocet for pain and is taking daily flomax. He reports a history of kidney stones (last episode was over 20 years ago) and has required intervention in the past. 03/23/23 NEG RETROGRADE, WENT INTO RETENTION 04/07/23 TOV Pain Hematuria Previous Stones Nausea ER visit @ [facility] Imaging studies (03/01/23) CT A/P wit h IV contrast-4 mm left UVJ stone with modeate hydro surgical intervention Physical Examination Category Sub-Category Detail Notes Section Note s MALE EXAMINATION HEENT: PERRLA, EOM's Intact, An icteric Neck: Normal, No JVD Lungs: Normal Respirations Abdomen: Non Distended Skin: Warm, Dry and Intact , Normal Skin Turgor and Hydration General Appearance WDWN, Alert, Oriente d X3, No Acute Distress, Extremities FROM, No Edema Back/Flank CVAT Absent
[2024-07-19] MEDS: IPRATROPIUM 0.5 MG/ALBUTEROL SULFATE 2.5 MG AMPUL.NEB 3 ML INHALATION (10:51)
== END 2024-07-19 11:27 | disposition home or self-care (01) ==
PROVIDERS: Emergency Provider Nurse Practitioner Family
DX: J40 Bronchitis, not specified as acute or chronic (principal); Z20.822 Contact with and (suspected) exposure to COVID-19
CPT/HCPCS: 87426; 87804; 99203; G0463